=== PATIENT | female | born 1965 | race Hispanic/Latino ===

== ENCOUNTER 2018-08-30 15:53 | Emergency (ER) | payer BC, OTHER ==
[~2018-08-30] VITALS: Ht 162.6 cm; Wt 81.6 kg
[~2018-08-30 15:53] MED LIST: MVI; NORVASC; Z.0.ENALAPRIL MALEA2 PO; Z.0.NORVASC5 MG; Z.0.ZOLOFT25 MG; ZOLOFT
--- OUTSIDE RECORDS SUMMARY | 2018-08-30 15:55 | XMS REPORT | Summary of Care ---
Author Organization Unknown Address Unknown Phone Unavailable Encounter HQ Maria Estherntr_libby([facility]) [id number] Date(s): 08/05/14 - 08/05/14 [facility] [address] Discharge Disposition: Home Physician Attending: Bernard Salmeron MD Physician_Referring: Bernard Salmeron MD Reason for Visit SCREENING Problem List No data available for this section Allergies, Adverse Reactions, Alerts Substance Reaction Severity Status Septra Active Medications No data available for this section Medications Administered During Your Visit No data available for this section Immunizations No data available for this section
--- OUTSIDE RECORDS SUMMARY | 2018-08-30 15:55 | XMS REPORT | Continuity of Care Document ---
Author Author [facility] Interface Address Unknown Phone Unavailable Problems Problem Status Onset Date Classification Date Reported Comments Source SCREENING MAMMOGRAM WITH IMPLANTS Active 10/29/2016 [facility] ROUTINE Active 09/04/2015 [facility] SCREENING Active 08/04/2014 [facility] Medications Medication Details Route Status Patient Instructions Ordering Provider Order Date Source Allergies, Adverse Reactions, Alerts Substance Category Reaction Severity Reaction type Status Date Reported Comments Source Septra Assertion Propensity to adverse reactions to drug Active [facility] Immunizations Immunization Date Given Site Status Last Updated Comments Source Results Order Name Results Value Reference Range Date Interpretation Comments Source Digital Mammo Screening [place] - DIGITAL MAMMO SCREENING [place] BILATERAL DIGITAL SCREENING MAMMOGRAM WITH CAD: 09/21/2015 CLINICAL: Routine. Current study was evaluated with a Computer Aided Detection (CAD) system. Comparison is made to exams dated: 08/05/2014 mammogram, 08/09/2013 mammogram - [facility] and 10/03/2009 mammogram. There are scattered fibroglandular densities in both breasts. Bilateral silicone prepectoral breast implants are noted and imaged with routine and implant displaced views. Implants obscure breast parenchyma making mammographic interpretation difficult. There are benign calcifications in both breasts. There also are benign vascular calcifications in the right breast. Bilateral breast implants are stable. No significant masses, calcifications, or other findings are seen in either breast. There has been no significant interval change. IMPRESSION: BENIGN There is no mammographic evidence of malignancy. A 1 year screening mammogram is recommended. Radha Calderon M.D. ap/penrad:09/24/2015 12:36:04 Maid Supervisor: Louise Sharpe, [facility] This exam was dictated and interpreted by [id number] for [facility]. letter sent: Normal exam Mammogram BI-RADS: 2 Benign 09/21/2015 - - Read by: Radha Calderon MD Dictated Date/time: 09/24/15 12:36 Electronically Signed by: Radha Calderon MD 09/24/15 12:36 FINAL REPORT [facility] Digital Mammo Screening [place] Digital Mammo Screening [place] - DIGITAL MAMMO SCREENING [place] BILATERAL DIGITAL SCREENING MAMMOGRAM WITH CAD: 08/05/2014 CLINICAL: Routine. Current study was evaluated with a Computer Aided Detection (CAD) system. Comparison is made to exams dated: 08/09/2013 mammogram - [facility] and 10/03/2009 mammogram. There are scattered fibroglandular densities in both breasts. Exam is limited as the technologist notes the patient would not allow for optimal positioning. Bilateral silicone prepectoral breast implants are noted and imaged with routine and implant displaced views. Implants obscure breast parenchyma making mammographic interpretation difficult. There are benign vascular calcifications in the right breast. Bilateral breast implants are stable. No significant masses, calcifications, or other findings are seen in either breast. There has been no significant interval change. IMPRESSION: BENIGN There is no mammographic evidence of malignancy. A screening mammogram in one year is recommended. Byron garciat/penrad:08/07/2014 08:17:10 Maid Supervisor: Lisa Gee, [facility] This exam was dictated and interpreted by [id number] for [facility]. letter sent: Normal exam Mammogram BI-RADS: 2 Benign 08/05/2014 - - Read by: Byron Rosario MD Dictated Date/time: 08/07/14 08:17 Electronically Signed by: Byron Rosario MD 08/07/14 08:17 FINAL REPORT [facility] Vital Signs Vital Sign Value Date Comments Source Encounters Location Location Details Encounter Type Encounter Number Reason For Visit Attending Provider ADM Date DC Date Status Source [facility] Outpatient [id number] Bernard Salmeron 08/05/2014 08/06/2014 [facility] Outpatient [id number] Bernard Salmeron 12/06/2016 12/07/2016 [facility] Procedures Procedure Code Date Perfomer Comments Source
--- OUTSIDE RECORDS SUMMARY | 2018-08-30 15:55 | XMS REPORT | Summary of Care ---
Author Author [facility] Organization [facility] Address Unknown Phone Unavailable Encounter HQ Encntr_alilinette([facility]) [id number] Date(s): 12/06/16 - 12/06/16 [facility] [address] [place] [address]- Discharge Disposition: Home or Self Care Attending Physician: Bernard Salmeron MD Referring Physician: Bernard Salmeron MD Vital Signs No data available for this section Problem List No data available for this section Allergies, Adverse Reactions, Alerts Substance Reaction Severity Status Septra Active Medications No data available for this section Results No data available for this section Immunizations No data available for this section Procedures No data available for this section Social History No data available for this section Assessment and Plan No data available for this section
[2018-08-30] MEDS ORDERED: ONDANSETRON HCL INJ 2 MG/ML VIAL IV STA (16:21)
[2018-08-30] MEDS ORDERED: MORPHINE SULFATE INJ 4 MG/ML INJ IV ONE (16:30)
--- NOTE | 2018-08-30 17:13 | Diagnostic Imaging Report ---
CT BRAIN [facility] HISTORY: Headache, hypertension, nausea COMPARISON: Head CT 04/14/2011 TECHNIQUE: Noncontrast axial scans were obtained from skull base to the vertex. Coronal and sagittal reconstructions obtained from the axial data. One or more of the following dose reduction techniques were used: Automated exposure control, adjustment of the mA and/or kV according to patient size, and/or utilization of iterative reconstruction technique. DISCUSSION: Scalp/Skull: Unremarkable. Brain sulci: Appropriate for patient's age. Ventricles: Normal in size and configuration. No hydrocephalus. Extra-axial spaces: No masses or fluid collections. Carotid siphon calcifications are present. Parenchyma: Mild periventricular white matter hypodensities are likely chronic microvascular ischemic changes. Otherwise, no masses, hemorrhage, or large vascular territory acute infarct. Dural sinuses: No abnormal densities. Sellar/Suprasellar region: Intact. Skull base: Intact. Incidental findings: None. IMPRESSION: 1. No acute intracranial abnormalities. 2. Mild supratentorial chronic microvascular ischemic change. Signed by: Dr. Gilberto Ward M.D. on 08/30/2018 5:10 PM
[2018-08-30 17:46] VITALS: BP 154/80
== END 2018-08-30 17:50 | disposition home or self-care (01) ==
LOC: FSED 15:53
DX: R51 Headache (principal); R11.2 Nausea with vomiting, unspecified; I10 Essential (primary) hypertension
CPT/HCPCS: 70450; 80053; 84484; 85025; 93005; 99283; J2270; J2405

== ENCOUNTER → 2020-10-03 | Day surgery (SDC) | payer BC, OTHER ==
[~2020-10-03] MED LIST changes: +BYSTOLIC10 MG PO; +CARBAMAZEPINE200 MG PO; +EPHEDRINE SULFATE INJ 50 MG/ML VIAL ONE; +FAMOTIDINE20 MG PO; +FENTANYL CITRATE/PF 100MCG/2 ML INJ ONE; +HYDRALAZINE HCL25 MG PO; +HYOSCYAMINE 0.125 MG TAB ONE; +HYOSCYAMINE SULFATE 0.5 MG/ML INJ ONE; +LIDOCAINE HCL 2% LOCAL INJ 5 ML SDV VIAL INJ ONE; +LIPITOR10 MG PO; +MIDAZOLAM HCL 2 MG/2 ML VIAL ONE; +MULTI-VITAMIN1 EACH PO; +ONDANSETRON HCL INJ 2MG/ML 2ML 2 MG/ML VIAL ONE; +PAROXETINE HCL20 MG PO; +PATADAY2.5 ML OP; +PROPOFOL IV EMULSION 10 MG/ML 20 ML VIAL ONE; +VIT C PO; +VIT D PO
[2020-10-03 11:40] VITALS: BP 127/84
== END | disposition home or self-care (01) ==
LOC: OR 08:58
PROVIDERS: ATTEND Internal Medicine Gastroenterology
DX: K29.70 Gastritis, unspecified, without bleeding (principal); K63.5 Polyp of colon; K31.7 Polyp of stomach and duodenum; K63.3 Ulcer of intestine; K21.9 Gastro-esophageal reflux disease without esophagitis; K20.90 Esophagitis, unspecified without bleeding; K92.89 Other specified diseases of the digestive system; K59.00 Constipation, unspecified; K57.30 Diverticulosis of large intestine without perforation or abscess without bleeding; K62.89 Other specified diseases of anus and rectum; K64.8 Other hemorrhoids; R00.1 Bradycardia, unspecified; I10 Essential (primary) hypertension; E78.5 Hyperlipidemia, unspecified; F41.9 Anxiety disorder, unspecified; Z88.2 Allergy status to sulfonamides; Z88.8 Allergy status to other drugs, medicaments and biological substances; Z80.0 Family history of malignant neoplasm of digestive organs
CPT/HCPCS: 43239; 45380; 93005; J1980; J2001; J2250; J2405; J2704; J3010; U0002; 45378; 45384